=== PATIENT | male | born 1955 | race Caucasian/White ===

== ENCOUNTER 2018-03-04 13:33 | Emergency (ER) | payer MEDICARE, SELFPAY ==
[2018-03-04 13:35] VITALS: BP 75/48; PULSE 110; RESP 18; TEMP 36.6; O2SAT 98; BMI 20.5
[2018-03-04 13:55] VITALS: BP 109/87; PULSE 91; RESP 16; O2SAT 95
--- NOTE | 2018-03-04 14:06 | RAD_ITS ---
STUDY: X-RAY CHEST REASON FOR EXAM: Male, 62 years old. Frequent falls. Hypertension. TECHNIQUE: Single AP portable view of the chest. COMPARISON: None. FINDINGS: EKG electrodes are seen. Hyperinflation. Mild increased markings at the lung bases. This suggests some mild bibasilar scarring. There is no demonstrated pleural abnormality. Normal size heart. Normal mediastinum and brenda. Normal visualized pulmonary arteries. There is atherosclerotic calcification of the aortic arch with tortuosity. Normal visualized thoracic spine. Electrodes from a TENS unit are seen. They terminate at the T7-T8 level. Normal visualized ribs, clavicles, and shoulders. There is no demonstrated abnormality of the visualized soft tissue structures of the upper abdomen. RAD/Chest 1 View (Portable) IMPRESSION: Hyperinflation. Findings suggest some mild bibasilar linear scarring. No acute abnormality is seen. Electronically Signed: Rodney Rey MD at 14:31 EDT Tel [phone], Service support ,
--- NOTE | 2018-03-04 14:06 | CT_ITS ---
STUDY: CT BRAIN WITHOUT CONTRAST REASON FOR EXAM: Male, 62 years old. Confusion. Hypotension. RADIATION DOSAGE (If Supplied By Facility): CTDIvol = ( 44.99 ) mGy, DLP = ( 796.11 ) mGycm TECHNIQUE: Transaxial CT imaging of the brain was performed without administration of intravenous contrast material. Individualized dose optimization techniques were used for this CT. COMPARISON: None. FINDINGS: Normal soft tissue structures. Normal calvarium. There is mild cerebral atrophy with widening of the extra-axial spaces and ventricular dilatation. Normal white matter tracts of the cerebral hemispheres. Normal basal ganglia and thalami. Normal brainstem. Normal cerebellum. There is no intracranial hemorrhage. There are no findings of an acute ischemic infarction. Atherosclerotic calcification of the cavernous portions of the internal carotid arteries bilaterally. Partial opacification of the right maxillary sinus. CT/Brain/Head without Contrast IMPRESSION: Partial opacification of the right maxillary sinus. Electronically Signed: Rodney Rey MD at 14:59 EDT Tel [phone], Service support ,
--- NOTE | 2018-03-04 14:06 | EKG12_ITS ---
Test Reason : CP,DIZZY,BACK PAIN Blood Pressure : / mmHG Vent. Rate : 098 BPM Atrial Rate : 098 BPM P-R Int : 170 ms QRS Dur : 080 ms QT Int : 346 ms P-R-T Axes : 067 026 077 degrees QTc Int : 441 ms Normal sinus rhythm Anterior infarct , age undetermined Abnormal ECG Confirmed by MYRNA LINCOLN ([id number]), material expeditor CORNELIA MEHTA ([id number]) on 03/17/2018 5:58:12 PM Referred By: STACEY/RAMONE Confirmed By:MYRNA LINCOLN
[2018-03-04] MEDS: 0.9% Normal Saline 1,000 ML 1000 ML IV (14:24)
[2018-03-04] MEDS: 0.9% Normal Saline 1,000 ML 150 ML IV (14:24)
[2018-03-04 14:33] VITALS: BMI 20.5
[2018-03-04 14:34] LABS: Absolute Lymphocyte Count 1.49 X10^3/ul (0.83-4.51); Absolute Neutrophil Count 10.3 X10^3/uL (2.0-7.7); Basophil# 0.06 X10^3/uL; Basophil% 0.5 % (0-1); Eosinophil# 0.09 X10^3/uL; Eosinophils% 0.7 % (0-5); Hemoglobin 13.4 g/dl (13.0-16.5); Lymphocyte # 1.49 X10^3/ul (4.0); Lymphocyte % 11.6 % (19-41); Mean Corp Hgb Conc 34.4 g/gl (32-36); Mean Corpuscular Hgb 31.6 pg (27.0-32.0); Mean Platelet Vol. 8.6 fl (6.2-12.0); Neutrophil # 10.29 X10^3/uL (2.7-7.7); Neutrophil % 79.9 % (47-70); Platelet Count 294 K/mm3 (150-450); RBC Distribution Width CV 13.2 % (11.6-14.6); RBC Distribution Width SD 44.2 fl (35.1-43.9); Red Blood Count 4.24 M/mm3 (4.6-6.2); White Blood Count 12.9 K/mm3 (4.4-11.0)
[2018-03-04 14:35] LABS: POSITIVE COUNT NO; POSITIVE DIFFERENTIAL NO; POSITIVE MORPHOLOGY NO
[2018-03-04 14:59] LABS: AST(SGOT) 18 U/L (15-37); Alanine Aminotransfer ALT/SGPT 20 U/L (16-61); Alkaline Phosphatase 98 U/L (45-117); Anion Gap 11 (5-15); BUN 19 mg/dL (7-18); Calcium,Total 9.2 mg/dL (8.5-10.1); Chloride 100 mmol/L (98-107); Creatinine, Serum 1.46 mg/dL (0.70-1.30); EST Glomerular Filtration Rate 52 mL/min (>60); Est Glom Filt Rate - Afr Amer 63 mL/min (>60); Globulin 3.5 g/dL (2.2-4.2); Glucose 84 mg/dL (74-106); Potassium 4.3 mmol/L (3.5-5.1); Protein, Total 7.5 g/dL (6.4-8.2); Sodium Level 133 mmol/L (136-145)
--- NOTE | 2018-03-04 15:47 | ED.VISSUMM ---
- ER Visit Summary Date of Service: 03/04/18 Chief Complaint: Dizzy, low blood pressure History of Present Illness: The patient is a 62 M who had dizziness upon getting up out of bed this morning. He reports feeling very lightheaded and he crumpled to his knees. states that several times when he tried to get upright he would become very weak. His blood pressures at home are in the 80s over 50s. also states that he has had confusion for the past month or so. He repeats questions and then forgets he is asked her. There has been no recent head injury. He does have a pinched nerve in his neck. He also has a spinal stimulator. History is otherwise significant for coronary disease, hypertension, high cholesterol, reflux disease. He has 2 cardiac stents. Patient denies any recent medication adjustments or changes. Physical Examination: Blood pressure in triage is 75/48 temperature 97.8 heart rate 110 respiratory rate 18 pulse ox 98% on room air. The time of my examination his blood pressure is 109/87 and a heart rate of 91. Head and neck examination is unremarkable. Heart is regular rate and rhythm. Lung sounds are clear. Abdomen is soft and nontender. Neuro exam reveals no focal neuro deficits. Test Results: EKG is sinus at 98 with anterior Q waves. No acute ST changes noted. Chest x-ray shows hyperinflation with no acute abnormality. CT the head shows partial opacification of the right maxillary sinus. CBC was a white count 12.9. Chemistry studies reveal a sodium of 133, BUN 19, creatinine 1.46. In May 2017 creatinine was 0.81. Troponin is less than 0.015. Urinalysis significant only for hyaline casts. No sign of acute infection. Emergency Department Course and Treatment: Patient is given 2 L of IV fluid. He is tolerating p.o. here and feels hungry. Patient has been able to get up and ambulate to the restroom without difficulty. His systolic blood pressure has been in the 140s. Test results were discussed with patient and at bedside. He will be given a course of Augmentin to treat the sinus infection. She states that he still seems confused and is repeating questions. This is been ongoing for several weeks. They were encouraged to follow-up with primary care physician as further testing can be done about this. Treatment Plan: [] Disposition: Discharge Impression: 1. Hypotension secondary to dehydration, improved 2. Acute sinusitis This note was generated with [employer] dictation software. It may contain incorrect words, spelling, and punctuation that were not noted in review of the chart prior to signing ED Disposition - Plan for ED Patient: Chief Complaint: Dizziness Referrals: Juliano Chung III, MD [Primary Care Provider] -
[2018-03-04 16:28] VITALS: BP 149/109; PULSE 82; RESP 16; O2SAT 97
[2018-03-04 16:28] LABS: Mucous, Urine 0 SEEN /hpf (<or=2+); Red Blood Cells-Urine 0 SEEN /hpf (0-5)
[2018-03-04] MEDS: 0.9% Normal Saline 1,000 ML 999 ML IV (16:29)
[2018-03-04 16:35] LABS: Color, Urine Yellow (Yellow); Glucose, Dipstick Normal (Normal); Ketone-Dipstick Negative (Negative); Leukocyte Esterase-Dipstick Negative /ul (Negative); Nitrite-Dipstick Negative (Negative); Occult Blood-Urine Negative /ul (Negative); Protein-Dipstick Negative (Negative); Specific Gravity, Urine 1.015 (1.002-1.030); Urine Bilirubin Dipstick Negative (Negative); Urine Clarity Clear (Clear); Urine Urobilinogen Normal (Normal)
[2018-03-04 16:47] LABS: Bacteria RARE /hpf (None Seen); Hyaline Cast 5-10 SEEN /lpf (0-5); Squamous Epithelial Cells - UA 0-5 SEEN /hpf (0-5); White Blood Cells 0-5 SEEN /hpf (0-5)
--- NOTE | 2018-03-04 16:57 | ED.DEP ---
ED Disposition - Plan for ED Patient: Disposition: Home or Assisted Living Chief Complaint: Dizziness Instructions: ED Sinusitis Abx Tx, ED Dehydration Prescriptions: Amox/Clavulanate Tablet [Augmentin Tablet] 875 mg PO Q12H #20 tablet Referrals: Juliano Chung III, MD [Primary Care Provider] - As soon as possible
[2018-03-04 17:14] VITALS: BP 141/97; PULSE 81; RESP 16; O2SAT 98
[2018-03-04] MEDS: Amox/Clavulanate 875 MG Tablet PO (17:14)
== END 2018-03-04 17:19 | disposition home or self-care (01) ==
PROVIDERS: Emergency Provider Emergency Medicine; Family Provider Family Medicine; PCP Family Medicine
DX: I95.89 Other hypotension (principal); E86.0 Dehydration; J01.90 Acute sinusitis, unspecified; I25.10 Atherosclerotic heart disease of native coronary artery without angina pectoris; I10 Essential (primary) hypertension; E78.00 Pure hypercholesterolemia, unspecified; K21.9 Gastro-esophageal reflux disease without esophagitis; F32.9 Major depressive disorder, single episode, unspecified; F41.9 Anxiety disorder, unspecified; Z95.5 Presence of coronary angioplasty implant and graft; Z79.82 Long term (current) use of aspirin; Z79.01 Long term (current) use of anticoagulants; Z79.899 Other long term (current) drug therapy; Z72.0 Tobacco use
CPT/HCPCS: 70450; 71045; 80048; 80076; 81001; 84484; 85025; 93005; 99284; A4216

== ENCOUNTER → 2018-05-09 11:36 | Outpatient (CLI) | payer MEDICARE, SELFPAY ==
[2018-05-09 13:43] LABS: Amphetamine Urine VISTA NEGATIVE (<1000 ng/mL); Barbiturate Urine VISTA NEGATIVE (< 200 ng/mL); Benzodiazepine Urine VISTA NEGATIVE (< 200 ng/mL); Cocaine Urine VISTA NEGATIVE (< 300 ng/mL); Ecstacy Urine VISTA POSITIVE (< 500 ng/mL); Methadone Urine VISTA NEGATIVE (< 300 ng/mL); PCP Urine VISTA NEGATIVE (< 25 ng/mL); THC Urine VISTA NEGATIVE (< 50 ng/mL); Vista UDS pH Range 6
== END ==
PROVIDERS: Family Provider Family Medicine; PCP Family Medicine; Visit Provider Anesthesiology Pain Medicine
DX: F11.20 Opioid dependence, uncomplicated (principal)
CPT/HCPCS: 80307

== ENCOUNTER → 2019-09-08 10:24 | Outpatient (CLI) | payer MEDICARE, SELFPAY ==
[2019-09-08 11:31] LABS: Amphetamine Urine VISTA NEGATIVE (<1000 ng/mL); Barbiturate Urine VISTA NEGATIVE (< 200 ng/mL); Benzodiazepine Urine VISTA NEGATIVE (< 200 ng/mL); Cocaine Urine VISTA NEGATIVE (< 300 ng/mL); Ecstacy Urine VISTA POSITIVE (< 500 ng/mL); Methadone Urine VISTA NEGATIVE (< 300 ng/mL); PCP Urine VISTA NEGATIVE (< 25 ng/mL); THC Urine VISTA NEGATIVE (< 50 ng/mL); Vista UDS pH Range 5
== END ==
PROVIDERS: Family Provider Family Medicine; PCP Family Medicine; Referring Provider Anesthesiology Pain Medicine; Visit Provider Anesthesiology Pain Medicine
DX: F11.20 Opioid dependence, uncomplicated (principal)
CPT/HCPCS: 80307

== ENCOUNTER 2019-10-21 16:51 | Emergency (ER) | payer MEDICARE, SELFPAY ==
[2019-10-21 16:52] VITALS: BP 142/88; PULSE 87; RESP 17; TEMP 36.4; O2SAT 95; BMI 20.1
[2019-10-21 17:01] VITALS: BP 149/100; PULSE 89; RESP 20; O2SAT 99
[2019-10-21 17:10] VITALS: O2SAT 98
--- NOTE | 2019-10-21 17:34 | EKG12_ITS ---
Test Reason : CP Blood Pressure : / mmHG Vent. Rate : 079 BPM Atrial Rate : 079 BPM P-R Int : 148 ms QRS Dur : 080 ms QT Int : 366 ms P-R-T Axes : 061 035 077 degrees QTc Int : 419 ms Normal sinus rhythm Normal ECG Confirmed by VALENTINA FLORES, RITO ([id number]), editorial cartoonist SHELBIE SHAW ([id number]) on 10/23/2019 10:07:39 AM Referred By: Juliano Chung Confirmed By:ROEL MONTGOMERY MD
[2019-10-21] MEDS: Naproxen 250 MG Tablet 500 MG PO (18:11)
[2019-10-21 18:12] LABS: Absolute Lymphocyte Count 2.35 X10^3/uL (0.83-4.51); Absolute Neutrophil Count 10.3 X10^3/uL (2.0-7.7); Basophil# 0.06 X10^3/uL; Basophil% 0.4 % (0-1); Eosinophil# 0.14 X10^3/uL; Hematocrit 32.3 % (40-54); Hemoglobin 10.9 g/dL (13.0-16.5); Lymphocyte # 2.35 X10^3/ul (4.0); Lymphocyte % 16.7 % (19-41); Mean Corp Hgb Conc 33.7 g/dL (32-36); Mean Corpuscular Hgb 31.8 pg (27.0-32.0); Mean Corpuscular Volume 94.2 fL (80-94); Mean Platelet Vol. 9.2 fl (6.2-12.0); Monocyte# 1.12 X10^3/uL; Monocyte% 7.9 % (0-10); NRBC Flagged by Analyzer 0 % (0-5); Neutrophil # 10.33 X10^3/uL (2.7-7.7); Neutrophil % 73.3 % (47-70); Platelet Count 372 K/mm3 (150-450); RBC Distribution Width SD 44.9 fl (35.1-43.9); Red Blood Count 3.43 M/mm3 (4.6-6.2); White Blood Count 14.1 K/mm3 (4.4-11.0)
--- NOTE | 2019-10-21 18:16 | RAD_ITS ---
STUDY: X-RAY CHEST REASON FOR EXAM: Male, 63 years old. Shortness of breath TECHNIQUE: Frontal and lateral views COMPARISON: March 04, 2018 FINDINGS: The lungs are expanded. No pulmonary pathology. Normal size heart. Normal mediastinum and brenda. Normal visualized pulmonary arteries. Calcified visualized aortic arch and descending thoracic aorta. Stimulator electrodes at the mid thoracic spine. Normal visualized ribs, clavicles, and shoulders. There is no demonstrated abnormality of the visualized soft tissue structures of the upper abdomen. RAD/Chest PA and Lateral IMPRESSION: No acute pulmonary pathology. Electronically Signed: Matti Freire DO at 18:44 EST Tel [phone], Service support ,
[2019-10-21 18:40] LABS: AST(SGOT) 15 U/L (15-37); Alanine Aminotransfer ALT/SGPT 20 U/L (16-61); Albumin, Serum 3.5 g/dL (3.2-5.0); Alkaline Phosphatase 82 U/L (45-117); Anion Gap 7 (5-15); BUN 11 mg/dL (7-18); BUN/Creat Ratio 12.1 RATIO (10-20); Calcium,Total 9.2 mg/dL (8.5-10.1); Chloride 104 mmol/L (98-107); Creatinine, Serum 0.91 mg/dL (0.70-1.30); EST Glomerular Filtration Rate 89 mL/min (>60); Est Glom Filt Rate - Afr Amer 108 mL/min (>60); Estimated Creatinine Clearance 65.77 ml/min; Globulin 3.4 g/dL (2.2-4.2); Glucose 60 mg/dL (74-106); Potassium 3.3 mmol/L (3.5-5.1); Protein, Total 6.9 g/dL (6.4-8.2); Sodium Level 136 mmol/L (136-145)
[2019-10-21 18:49] LABS: BNP,B-Type NATRIURETIC PEPTIDE 193.3 pg/mL (0-100)
[2019-10-21 20:40] VITALS: BP 131/74; PULSE 74; RESP 14; O2SAT 94
--- NOTE | 2019-10-21 21:05 | ED.DCSUM_ITS ---
- ER Visit Summary Date of Service: 10/21/19 Chief Complaint: Shortness of breath History of Present Illness: The patient is a 63 M who presents with shortness of breath that began today. Patient states his breathing is heavy. Patient states nothing makes his breathing better or worse. Patient admits to a cough but denies any sputum production. Patient also states he has a history of congestive heart failure and cirrhosis. Patient denies any orthopnea. Patient denies any fevers or chills. Physical Examination: Vital signs are stable. Patient is afebrile. Patient is in no acute distress. Oral mucosa is pink and moist. Neck is supple. Trachea is midline. There is no JVD noted. Heart was regular rate and rhythm. Lungs are clear and equal bilaterally. Abdomen is soft. Bowel sounds are normal. There is no tenderness. There is no rebound or guarding noted. Skin is warm dry. Cranial nerves II through XII are intact. There are no focal motor or sensory deficits noted. Extremities are intact. There is no calf tenderness or edema. Test Results: CBC shows a mild leukocytosis of 14.1. Hemoglobin was 10.9 hematocrit was 32.3. Comprehensive metabolic profile was essentially within normal limits. Troponin was normal. BNP was 193.7. EKG showed normal sinus rhythm with a rate of 79. There are no acute ST or T wave changes. This was unchanged compared to previous EKG dated 03/04/2018. PA and lateral chest x-ray was obtained. There is no acute cardiopulmonary process. This was interpreted by the radiologist and myself. Emergency Department Course and Treatment: Patient was given a dose of Naprosyn here. Patient was sleeping on reevaluation. Patient was instructed to follow- up with his primary care physician in 5 to 7 days. Patient understood and was agreeable with the plan. All questions were answered. Disposition: Discharge home Impression: Dyspnea This note was generated with [employer] dictation software. It may contain incorrect words, spelling, and punctuation that were not noted in review of the chart prior to signing ED Disposition - Plan for ED Patient: Disposition: Home or Assisted Living Diagnosis: Dyspnea Instructions: ED Dyspnea Referrals: Juliano Chung III, MD [Primary Care Provider] - 3-5 Days
[2019-10-21 21:21] VITALS: BP 147/71; PULSE 78; RESP 17; O2SAT 96
--- NOTE | 2019-10-21 21:46 | CM.ED ---
Social Work Consult: Resource Informant: Grecia iFelds, RN Attempted to meet with patient, patient already left. Looked in waiting room, patient no longer in the ER from what this social work administrator can tell. Updated nursing staff. Nursing staff stating that patient did appear to be in a hurry. Referral for housing resources. Patient stating to be sleeping in truck per nursing staff. Sariah DIAS, RYLEE
== END 2019-10-21 21:24 | disposition home or self-care (01) ==
PROVIDERS: Emergency Provider Emergency Medicine; PCP Family Medicine; Referring Provider Family Medicine
DX: R06.00 Dyspnea, unspecified (principal); R05 Cough; M54.9 Dorsalgia, unspecified; M54.2 Cervicalgia; G89.29 Other chronic pain; R51 Headache; I50.9 Heart failure, unspecified; K74.60 Unspecified cirrhosis of liver; Z95.5 Presence of coronary angioplasty implant and graft; Z79.82 Long term (current) use of aspirin; Z79.02 Long term (current) use of antithrombotics/antiplatelets; Z79.899 Other long term (current) drug therapy; F17.200 Nicotine dependence, unspecified, uncomplicated
CPT/HCPCS: 71046; 80053; 83880; 84484; 85025; 93005; 99284; A4216

== ENCOUNTER → 2020-01-01 10:43 | Outpatient (CLI) | payer MEDICARE, SELFPAY ==
--- NOTE | 2020-01-01 10:50 | RAD_ITS ---
STUDY: X-RAY - LUMBAR SPINE REASON FOR EXAM: Male, 64 years old. RECENT FALL, PAIN TECHNIQUE: 3 view(s) of the lumbar spine were obtained. COMPARISON: None FINDINGS: There is straightening of the normal lumbar lordosis. There is no substantial scoliosis. There is a normal alignment of the vertebrae. There is multilevel endplate spondylosis of the lumbar vertebrae. There is multi-level degenerative disc disease with multi-level disc space narrowing. There is atherosclerotic calcification of the abdominal aorta without a demonstrated aneurysm. The spinal cord stimulation device is seen. RAD/Lumbar Spine 2 or 3 Views IMPRESSION: Degenerative changes of the spine, as detailed above. Straightening of the normal lumbar lordosis. Electronically Signed: Rodney Rey, at 14:22 EDT , Service support ,
--- NOTE | 2020-01-01 10:50 | RAD_ITS ---
STUDY: X-RAY - PELVIS REASON FOR EXAM: Male, 64 years old. RECENT FALL, PAIN TECHNIQUE: One view of the pelvis was obtained. COMPARISON: None. FINDINGS: There is a non-specific bowel gas pattern. There are multiple calcified phleboliths. A pain stimulator device is seen with the battery pack overlying the right hip joint. Normal bilateral iliac wings, sacroiliac joints and visualized sacrum. Normal visualized bilateral superior and inferior pubic rami. There are degenerative changes of the pubic symphysis with articular narrowing and sclerosis. Normal ischial tuberosities. Normal visualized right femoral head. Normal right acetabulum. Normal right hip joint. Normal visualized left femoral head. Normal left acetabulum. Normal left hip joint. RAD/Pelvis 1 or 2 Views IMPRESSION: No acute abnormality is seen. Electronically Signed: Rodney Rey, at 14:24 EDT , Service support ,
== END ==
LOC: RAD 10:48
PROVIDERS: PCP Family Medicine; Referring Provider Anesthesiology Pain Medicine; Visit Provider Anesthesiology Pain Medicine
DX: M54.5 Low back pain (principal)
CPT/HCPCS: 72100; 72170

== ENCOUNTER 2022-10-24 18:35 | Emergency (ER) | payer MEDICARE, SELFPAY ==
[2022-10-24 18:37] VITALS: BP 127/87; PULSE 74; RESP 16; TEMP 35.9; O2SAT 98; BMI 20.1
--- NOTE | 2022-10-24 19:15 | EKG12_ITS ---
Test Reason : CP Blood Pressure : / mmHG Vent. Rate : 063 BPM Atrial Rate : 063 BPM P-R Int : 188 ms QRS Dur : 086 ms QT Int : 404 ms P-R-T Axes : 082 040 087 degrees QTc Int : 413 ms Normal sinus rhythm Normal ECG Confirmed by VALENTINA FLORES, RITO ([id number]), make up editor ALLEN REID ([id number]) on 10/25/2022 1:40:21 PM Referred By: FRANCESCO Confirmed By:ROEL MONTGOMERY MD
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
--- NOTE | 2022-10-24 19:30 | RAD_ITS ---
STUDY: X-RAY CHEST REASON FOR EXAM: Male, 66 years old. cp TECHNIQUE: XR Chest 1 View COMPARISON: 10.21.19 FINDINGS: There is atherosclerotic calcification of the aortic arch with tortuosity. There are diffuse degenerative changes of the visualized thoracic spine. There is degenerative osteoarthritis of the bilateral shoulders. There is no demonstrated pleural abnormality. Metallic leads in the spinal canal may suggest spinal stimulator leads. Normal size heart. Normal mediastinum and brenda. Normal visualized pulmonary arteries. There is no demonstrated abnormality of the visualized soft tissue structures of the upper abdomen. RAD/Chest 1 View (Portable) IMPRESSION: There are no acute findings. Electronically Signed: Matt Sutton MD at 19:58 EST ,
[2022-10-24 19:43] LABS: Absolute Neutrophil Count 6.1 X10^3/uL (2.0-7.7); Basophil# 0.09 X10^3/uL; Basophil% 0.9 % (0-1); Eosinophil# 0.41 X10^3/uL; Eosinophils% 3.9 % (0-5); Hematocrit 36.7 % (40-54); Hemoglobin 12.6 g/dL (13.0-16.5); Lymphocyte % 29.5 % (19-41); Mean Corp Hgb Conc 34.3 g/dL (32-36); Mean Corpuscular Hgb 32.4 pg (27.0-32.0); Mean Corpuscular Volume 94.3 fL (80-94); Mean Platelet Vol. 8.9 fl (6.2-12.0); Monocyte# 0.74 X10^3/uL; NRBC Flagged by Analyzer 0 % (0-5); Neutrophil # 6.12 X10^3/uL (2.7-7.7); Neutrophil % 58.3 % (47-70); Platelet Count 317 K/mm3 (150-450); RBC Distribution Width CV 12.1 % (11.6-14.6); RBC Distribution Width SD 42.1 fl (35.1-43.9); Red Blood Count 3.89 M/mm3 (4.6-6.2); White Blood Count 10.5 K/mm3 (4.4-11.0)
[2022-10-24 20:12] LABS: Anion Gap 7 (5-15); BUN 11 mg/dL (7-18); BUN/Creat Ratio 11.1 RATIO (10-20); Calcium,Total 9.1 mg/dL (8.5-10.1); Chloride 102 mmol/L (98-107); Creatinine, Serum 0.99 mg/dL (0.70-1.30); EST Glomerular Filtration Rate 80 mL/min (>60); Est Glom Filt Rate - Afr Amer 97 mL/min (>60); Estimated Creatinine Clearance 58.07 ml/min; Glucose 82 mg/dL (74-106); Sodium Level 135 mmol/L (136-145); Troponin-I HS 7 pg/mL (3.0-78.0)
[2022-10-24 21:54] VITALS: BP 121/71; PULSE 73; RESP 14; O2SAT 96
== END 2022-10-24 21:55 | disposition home or self-care (01) ==
PROVIDERS: Emergency Provider Emergency Medicine; PCP Family Medicine; Visit Provider Emergency Medicine
DX: F41.9 Anxiety disorder, unspecified (principal); R07.9 Chest pain, unspecified; F17.210 Nicotine dependence, cigarettes, uncomplicated; I25.10 Atherosclerotic heart disease of native coronary artery without angina pectoris
CPT/HCPCS: 71045; 80048; 84484; 85025; 93005; 99285

== ENCOUNTER 2024-10-05 15:54 | Emergency (ER) | payer MEDICARE, SELFPAY ==
[2024-10-05 15:55] VITALS: PULSE 50; RESP 18; TEMP 36.5; O2SAT 96; BMI 19.9
--- NOTE | 2024-10-05 16:20 | RAD_ITS ---
STUDY: X-RAY - LEFT HUMERUS REASON FOR EXAM: Male, 68 years old. fall,pain, deformity TECHNIQUE: 2 view(s) of the humerus. COMPARISON: None. FINDINGS: There is an acute spiral fracture of the proximal to midshaft of the humerus with overlapping and mild medial angulation of fracture fragments. There is no demonstrated fracture or osseous destructive process. There is diffuse soft tissue swelling of the arm RAD/Humerus min 2 Views IMPRESSION: Acute displaced angulated fracture of the proximal to mid humeral shaft Electronically Signed: Harjeet Solano MD at 16:37 EST ,
[2024-10-05 16:54] VITALS: BP 132/79; PULSE 64; RESP 18; O2SAT 95
--- NOTE | 2024-10-05 17:09 | CT_ITS ---
STUDY: CT BRAIN WITHOUT CONTRAST REASON FOR EXAM: Male, 68 years old. Trauma RADIATION DOSAGE (If Supplied By Facility): CTDIvol = ( 44.99 ) mGy, DLP = ( 829.85 ) mGycm TECHNIQUE: Transaxial CT imaging of the brain was performed without administration of intravenous contrast material. Individualized dose optimization techniques were used for this CT. COMPARISON: March 04, 2018. FINDINGS: Normal soft tissue structures. Normal calvarium. Calcific plaquing of the cavernous carotids Mild atrophy and periventricular white matter ischemic changes.. Normal basal ganglia and thalami. Normal brainstem. Normal cerebellum. There is no intracranial hemorrhage. There are no findings of an acute ischemic infarction. Moderate mucosal thickening of the right maxillary sinus CT/Brain/Head without Contrast IMPRESSION: [Atrophy and periventricular white matter ischemic change. No acute intracranial bleed Electronically Signed: Harjeet Solano MD at 18:26 EST ,
--- NOTE | 2024-10-05 17:09 | CT_ITS ---
STUDY: CT CERVICAL SPINE WITHOUT CONTRAST REASON FOR EXAM: Male, 68 years old. Trauma RADIATION DOSAGE (If Supplied By Facility): CTDIvol = ( 24.84 ) mGy, DLP = ( 500.84 ) mGycm TECHNIQUE: High resolution transaxial imaging was performed without contrast material. Sagittal and coronal images were reconstructed. Individualized dose optimization techniques were used for this CT. COMPARISON: None FINDINGS: Normal craniovertebral junction. Normal anterior atlantoaxial articulation. Normal odontoid process. Normal cervical lordosis. Normal vertebral bodies and posterior osseous elements. C2-3: Normal endplates. Normal disc height and morphology. Normal central canal and intervertebral neuroforamina. C3-4: Normal endplates. Normal disc height and morphology. Normal central canal. Severe right neural foraminal stenosis secondary to bony hypertrophy C4-5: Normal endplates. Normal disc height and morphology. Normal central canal. Moderate right neural foraminal stenosis and mild narrowing on the left secondary to bony hypertrophy C5-6: Narrowed disc space and endplate spurring.. Normal central canal. Severe bilateral neural foraminal stenosis secondary to bony hypertrophy C6-7: Narrowed disc space and endplate spurring. Normal central canal. Severe bilateral neural foraminal stenosis secondary to bony hypertrophy. C7-T1: Grade 1 spondylolisthesis Normal endplates. Normal disc height and minimal bulging disc osteophyte complex Normal central canal and intervertebral neuroforamina. Normal visualized soft tissue structures. CT/Spine Cervical without Contras IMPRESSION: Moderate spondylosis most severe at C5-6 and C6-7. No acute fracture or other significant abnormality. Electronically Signed: Harjeet Solano MD at 18:28 EST Reading Location ID and State: [id number] [place] [address] Tel , Service support ,
[2024-10-05] MEDS: Morphine 4 MG/ML Syringe IV (17:17)
[2024-10-05] MEDS: Ondansetron 4 MG/2 ML Vial IV (17:17)
[2024-10-05] MEDS: 0.9% Normal Saline (1000mL) 1,000 ML 999 ML IV (17:17)
[2024-10-05 17:21] LABS: Absolute Lymphocyte Count 3.08 X10^3/uL (0.83-4.51); Absolute Neutrophil Count 6.3 X10^3/uL (2.0-7.7); Basophil# 0.11 X10^3/uL; Eosinophil# 0.17 X10^3/uL; Eosinophils% 1.6 % (0-5); Hematocrit 40.5 % (40-54); Hemoglobin 13.3 g/dL (13.0-16.5); Lymphocyte # 3.08 X10^3/ul (0.83-4.51); Lymphocyte % 29.3 % (19-41); Mean Corp Hgb Conc 32.8 g/dL (32-36); Mean Corpuscular Hgb 32.5 pg (27.0-32.0); Mean Platelet Vol. 9.8 fl (6.2-12.0); Monocyte% 7.6 % (0-10); NRBC Flagged by Analyzer 0 % (0-5); Neutrophil % 60.1 % (47-70); Platelet Count 312 K/mm3 (150-450); RBC Distribution Width CV 12.1 % (11.6-14.6); Red Blood Count 4.09 M/mm3 (4.6-6.2); White Blood Count 10.5 K/mm3 (4.4-11.0)
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
[2024-10-05 17:36] LABS: Anion Gap 11 (5-15); BUN 15 mg/dL (7-18); BUN/Creat Ratio 12.4 RATIO (10-20); Calcium,Total 8.8 mg/dL (8.5-10.1); Chloride 101 mmol/L (98-107); Creatinine, Serum 1.21 mg/dL (0.70-1.30); EST Glomerular Filtration Rate 63 mL/min (>60); Est Glom Filt Rate - Afr Amer 76 mL/min (>60); Estimated Creatinine Clearance 45.65 ml/min; Glucose 91 mg/dL (74-106); Sodium Level 135 mmol/L (136-145)
[2024-10-05] MEDS: Diphth,Pertuss(Acell),Tet Vac 0.5 ML Vial IM (17:56)
[2024-10-05 18:00] VITALS: BP 151/83; PULSE 75; RESP 18; O2SAT 95
[2024-10-05 19:00] VITALS: BP 151/94; PULSE 84; RESP 18; O2SAT 94
[2024-10-05] MEDS: HYDROmorphone 1 MG/ML Syringe IV (19:25)
[2024-10-05 20:00] VITALS: BP 134/80; PULSE 85; RESP 20; O2SAT 92
[2024-10-05] MEDS: fentaNYL 100 MCG/2 ML Ampul 50 MCG IV (20:00)
[2024-10-05 20:51] VITALS: BP 134/80; PULSE 85; RESP 18; TEMP 36.8; O2SAT 92
[2024-10-05] MEDS: oxyCODONE 5 MG Tablet PO (22:29)
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
== END 2024-10-05 22:31 | disposition home or self-care (01) ==
PROVIDERS: Emergency Provider Surgery; PCP Family Medicine; Visit Provider Surgery
DX: S42.352A Displaced comminuted fracture of shaft of humerus, left arm, initial encounter for closed fracture (principal); F10.129 Alcohol abuse with intoxication, unspecified; I25.10 Atherosclerotic heart disease of native coronary artery without angina pectoris; F17.210 Nicotine dependence, cigarettes, uncomplicated; W19.XXXA Unspecified fall, initial encounter
CPT/HCPCS: 70450; 72125; 73060; 80048; 82077; 85025; 90715; 96361; 96374; 96375; 96376; 99285; A4216; J2405

== ENCOUNTER 2024-10-13 10:35 | Day surgery (SDC) | payer MEDICARE, SELFPAY ==
--- NOTE | 2024-10-12 12:30 | PAT.ANE_ITS ---
Pre-Assessment Diagnosis/Proposed Procedure Planned Operative Procedure(s): LEFT ORIF HUMERUS Anesthesia History Anesthesia History - front counter clerk: Anesthesia History - front counter clerk Hx Hospitalization No 10/09/24 09:23 Any Problems With Anesthesia No 10/09/24 09:23 Cholinesterase deficiency No 10/09/24 09:23 You/Your Family Experience No 10/09/24 09:23 fever (hyperthermia) with Relationship Recent Exposure to Contagious No 10/06/24 15:28 Disease Does patient have nerve No 10/09/24 09:23 stimulator Patient instructed to have device shut off --Does patient have Pacemaker or ICD? When Was Last Pacemaker Check QUESTION #4 FULL TEXT: You/Your Family Experience fever (hyperthermia) with Anesthesia Last Oral Intake Last Oral intake: Last Oral Intake NPO since Meds taken in AM with sips of water? Meds patient instructed to take am of surgery PONV PONV - front counter clerk: PONV - front counter clerk Female No 10/09/24 09:23 HX of Motion Sickness No 10/09/24 09:23 HX of N/V After Surgery No 10/09/24 09:23 Non-Smoker No 10/09/24 09:23 Duration of Surgery greater Yes 10/09/24 09:23 than 60 minutes Number of Risk Factors 1 10/09/24 09:23 PONV Score Low Risk 10/09/24 09:23 Height & Weight Height & Weight: Anesthesia: Height & Weight Height 5 ft 6 in 10/08/24 14:24 Respiratory Assessment Respiratory Assessment - front counter clerk: Respiratory Tract Infection Hx - front counter clerk Hx Respiratory Tract Infection No 10/09/24 09:23 STOP Sleep Apnea STOP Sleep Apnea - front counter clerk: STOP Sleep Apnea - front counter clerk Hx Hypertension Yes: CONTROLLED ON MEDS 10/09/24 09:23 Hx Sleep Apnea No 10/09/24 09:23 CPAP BIPAP Do you snore loudly (louder No 10/09/24 09:23 than talking or can be heard Do you often feel tired/ No 10/09/24 09:23 fatigued/ sleepy during daytime? Has anyone observed you stop No 10/09/24 09:23 breathing during sleep? STOP Results Negative 10/09/24 09:23 QUESTION #5 FULL TEXT : Do you snore loudly (louder than talking or can be heard through closed doors)? Tobacco Use History Tobacco Use History - front counter clerk: Tobacco Use History - front counter clerk Tobacco Use Smoking Status Current every day smoker 10/09/24 09:23 Hx Tobacco Use Yes 10/09/24 09:23 Years Smoking Packs Smoked per Day Smoking Cessation Date was within the last 15 years Hx Smoking Cessation Date Hx Smoking Cessation Counseling Hematologic Medial History Hematologic Hx - front counter clerk: Hematologic Medical Hx - flash designer Hx of Blood Transfusion No 10/09/24 09:23 Hx of Transfusion in last 3 No 10/09/24 09:23 Months Date of Last Transfusion (if within last 3 months) Ever experience any problems No 10/09/24 09:23 with transfusion(s)? Specify any problems Hx of Preganancy in last 3 No 10/09/24 09:23 Months Nurse Filling Out Transfusion VCHRISTIN 10/09/24 09:23 & Questions: Date: 10/09/24 10/09/24 09:23 Time: 09:35 10/09/24 09:23 Patient unable to answer at this time (ie. confused, unrespo /Reproduction History /Reproductive History - front counter clerk: /Reproductive Hx- front counter clerk Hx Now Gestational Age (in weeks): EDC: Hx Hx Para Hx Section SAB PFSH Medical History (Updated 10/09/24 @ 09:34 by Shahrzad Alfonso) Wears dentures Wears glasses Alcohol use Arthritis Excessive bleeding Back pain Blackout History of hiatal hernia History of ulceration Gastric reflux Smoker COPD (chronic obstructive pulmonary disease) Emphysema, unspecified Shortness of breath on exertion History of pain when walking History of echocardiogram History of stress test Cardiology follow-up encounter History of CHF (congestive heart failure) Left humeral fracture Hypertension Congestive heart failure (CHF) Coronary artery disease Chest pain Home Medications ?Medication ?Instructions ?Recorded ?Last Taken ?Type gabapentin 300 mg capsule 300 mg PO TIDCM PRN Pain 03/12/16 03/03/18 History aspirin 81 mg chewable tablet 81 mg PO DAILY@0800 health 05/15/17 03/03/18 History maintenance clopidogrel 75 mg tablet 75 mg PO DAILY blood thinner 05/15/17 03/03/18 History atorvastatin 40 mg tablet 40 mg PO QHS cholesterol 03/04/18 03/03/18 History pantoprazole 40 mg tablet,delayed 40 mg PO DAILY gerd/acid reflux 03/04/18 03/03/18 History release lisinopril 10 mg tablet 10 mg PO DAILY 10/21/19 Unknown History citalopram 20 mg tablet 20 mg PO QDAY 10/08/24 Unknown History meloxicam 15 mg tablet 15 mg PO DAILY 10/08/24 Unknown History trazodone 100 mg tablet 200 mg PO QHS PRN sleep 10/08/24 Unknown History buspirone 5 mg tablet 5 mg PO TID 10/09/24 Unknown History metoprolol succinate 25 mg 25 mg PO QHS 10/09/24 Unknown History tablet,extended release 24 hr Allergy/AdvReac Type Severity Reaction Status Date / Time No Known Allergies Allergy Verified 10/09/24 09:12 Surgical History (Updated 10/09/24 @ 09:34 by Shahrzad Alfonso) History of coronary artery stent placement History of cardiac catheterization Hx of tonsillectomy History of back surgery History of mandibular surgery Hx of knee surgery Social History Smoking Status: Current every day smoker tobacco type: cigarettes Audit: Pertinent Findings Pertinent Findings EKG Perinent findings: 10/26/2022 normal sinus rhythm 67 bpm normal EKG Heart catheterization pertinent findings: 10/12/2019 EF 60% LAD prior intervention stent in proximal LAD patent Additional pertinent findings: Potassium 3.0 10/05/2024 lab office aware Recommendation Anesthesia Recommendation Anesthesia recommendation: OPTIMIZED for anesthesia
[2024-10-13] VITALS (11 sets, daily range): BP systolic 130–158; BP diastolic 73–98; PULSE 62–79; RESP 16; TEMP 35.8–37.1; O2SAT 90–100
[2024-10-13] MEDS: 0.9% Normal Saline (1000mL) 1,000 ML 15 ML IV (11:43)
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
--- NOTE | 2024-10-13 11:59 | PRE.ANES_ITS ---
ASA Classification* ASA Classification ASA Classification: 3 Assessment & Plan Anesthesia* Anesthesia Assessment Anesthesia Assessment: Discussed sedation and/or anesthesia options, risks, benefits, and alternatives with patient/parents/legal guardian/POA. Questions invited. The patient/parents/legal guardian/POA seems to understand and agrees to proceed with anesthesia plan. Reviewed the physical assessment, medical history, allergy history and patient home medications list prior to surgery/procedure/anesthetic and documented any changes. Performed airway and anesthesia risk assessments. Anesthesia Type Anesthesia Type: General History Source History Obtained from:: Patient and Chart Anesthesia Focused Assessment* Temperature: 98.7 F Pulse Rate: 67 Blood Pressure: 152/89 Respiratory Rate: 16 Pulse Ox: 100 Oxygen Delivery Method: Room Air Airway Assessment Mouth opens: >3 cm Mallampati Score: II Teeth Condition: Dentures (Patient has full upper and lower dentures. They are out.) Neck Range of motion (ROM): Full ROM Focused Labs Anesthesia Preop lab: CBC WBC 10.5 K/mm3 (4.4-11.0) 10/05/24 15:40 RBC 4.09 M/mm3 (4.6-6.2) L 10/05/24 15:40 Hgb 13.3 g/dL (13.0-16.5) 10/05/24 15:40 Hct 40.5 % (40-54) 10/05/24 15:40 Plt Count 312 K/mm3 (150-450) 10/05/24 15:40 CHEMISTRY Potassium 3.0 mmol/L (3.5-5.1) L 10/05/24 15:40 Sodium 135 mmol/L (136-145) L 10/05/24 15:40 BUN 15 mg/dL (7-18) 10/05/24 15:40 Creatinine 1.21 mg/dL (0.70-1.30) 10/05/24 15:40 Glucose 91 mg/dL (74-106) 10/05/24 15:40 COAG PT 13.4 SECONDS (11.7-14.9) 05/16/17 05:00 Pre-Assessment Diagnosis/Proposed Procedure Planned Operative Procedure(s): LEFT ORIF HUMERUS Anesthesia History 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 When Was Last Pacemaker Check QUESTION #4 FULL TEXT: You/Your Family Experience fever (hyperthermia) with Anesthesia Last Oral Intake Last Oral intake: Last Oral Intake NPO since 20:00 10/13/24 11:24 Meds taken in AM with sips of water? Meds patient instructed to take am of surgery PONV PONV - telecommunications technician: PONV - telecommunications technician Female No 10/09/24 09:23 HX of Motion Sickness No 10/09/24 09:23 HX of N/V After Surgery No 10/09/24 09:23 Non-Smoker No 10/09/24 09:23 Duration of Surgery greater Yes 10/09/24 09:23 than 60 minutes Number of Risk Factors 1 10/09/24 09:23 PONV Score Low Risk 10/09/24 09:23 Height & Weight Height & Weight: Anesthesia: Height & Weight Height 5 ft 5 in 10/13/24 11:24 Weight: 54.8 kg 10/13/24 11:24 Body Mass Index (BMI) 20.0 10/13/24 11:24 Respiratory Assessment Respiratory Assessment - telecommunications technician: Respiratory Tract Infection Hx - telecommunications technician Hx Respiratory Tract Infection No 10/09/24 09:23 STOP Sleep Apnea STOP Sleep Apnea - telecommunications technician: STOP Sleep Apnea - telecommunications technician Hx Hypertension Yes: CONTROLLED ON MEDS 10/09/24 09:23 Hx Sleep Apnea No 10/09/24 09:23 CPAP BIPAP Do you snore loudly (louder No 10/09/24 09:23 than talking or can be heard Do you often feel tired/ No 10/09/24 09:23 fatigued/ sleepy during daytime? Has anyone observed you stop No 10/09/24 09:23 breathing during sleep? STOP Results Negative 10/09/24 09:23 QUESTION #5 FULL TEXT : Do you snore loudly (louder than talking or can be heard through closed doors)? 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 Specify any problems Hx of Preganancy in last 3 No 10/09/24 09:23 Months Nurse Filling Out Transfusion VCHRISTIN 10/09/24 09:23 & Questions: Date: 10/09/24 10/09/24 09:23 Time: 09:35 10/09/24 09:23 Patient unable to answer at this time (ie. confused, unrespo /Reproduction History /Reproductive History - telecommunications technician: /Reproductive Hx- telecommunications technician Hx Now Gestational Age (in weeks): EDC: Hx Hx Para Hx Section SAB Active Medications Active Medications: Current Medications Generic Name Dose Route Start Last Admin Trade Name Freq PRN Reason Stop Dose Admin Sodium Chloride 1,000 mls @ 15 mls/hr 10/13/24 10:45 10/13/24 11:43 IV 10/19/24 00:04 15 mls/hr .Q48H DARIN Administration Protocol [facility] Medical History Wears dentures Wears glasses Alcohol use Arthritis Excessive bleeding Back pain Blackout History of hiatal hernia History of ulceration Gastric reflux Smoker COPD (chronic obstructive pulmonary disease) Emphysema, unspecified Shortness of breath on exertion History of pain when walking History of echocardiogram History of stress test Cardiology follow-up encounter History of CHF (congestive heart failure) Left humeral fracture Hypertension Congestive heart failure (CHF) Coronary artery disease Chest pain Home Medications ?Medication ?Instructions ?Recorded ?Last Taken ?Type gabapentin 300 mg capsule 300 mg PO TIDCM PRN Pain 03/12/16 10/12/24 History aspirin 81 mg chewable tablet 81 mg PO DAILY@0800 health 05/15/17 10/10/24 History maintenance clopidogrel 75 mg tablet 75 mg PO DAILY blood thinner 05/15/17 10/10/24 History atorvastatin 40 mg tablet 40 mg PO QHS cholesterol 03/04/18 10/12/24 History pantoprazole 40 mg tablet,delayed 40 mg PO DAILY gerd/acid reflux 03/04/18 10/12/24 History release lisinopril 10 mg tablet 10 mg PO DAILY 10/21/19 10/12/24 History citalopram 20 mg tablet 20 mg PO QDAY 10/08/24 10/12/24 History meloxicam 15 mg tablet 15 mg PO DAILY 10/08/24 10/12/24 History trazodone 100 mg tablet 200 mg PO QHS PRN sleep 10/08/24 Unknown History buspirone 5 mg tablet 5 mg PO TID 10/09/24 10/12/24 History metoprolol succinate 25 mg 25 mg PO QHS 10/09/24 10/12/24 History tablet,extended release 24 hr Allergy/AdvReac Type Severity Reaction Status Date / Time No Known Allergies Allergy Verified 10/13/24 11:15 Surgical History History of coronary artery stent placement History of cardiac catheterization Hx of tonsillectomy History of back surgery History of mandibular surgery Hx of knee surgery Social History Smoking Status: Current every day smoker tobacco type: cigarettes Review of Systems (Anesthesia) ROS Narrative System reviewed and no additional complaints, except as documented.
--- NOTE | 2024-10-13 12:00 | RAD_ITS ---
STUDY: X-RAY - LEFT HUMERUS REASON FOR EXAM: Male, 68 years old. FX TECHNIQUE: 12 intraoperative spot films of the left humerus. COMPARISON: Left humerus radiographs dated 10/05/2024. FINDINGS: Sequential intraoperative spot films of the left humerus were obtained during ORIF hardware placement into the humerus, including intramedullary lynne placement with 4 proximal fixation screws and 2 distal interlocking screws. RAD/Humerus min 2 Views IMPRESSION: Intraoperative spot films taken during ORIF hardware placement into the left humerus. Electronically Signed: Duong Ewing MD at 14:38 EST ,
[2024-10-13] MEDS: Cefazolin 2 GM in Syringe IV (12:30)
--- NOTE | 2024-10-13 14:38 | OP.PCM_ITS ---
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 [employer] Dean: stefano Tasks completed by assistant foreman: Retracting Additional web press operator assistant?: No Type of Anesthesia: Block,Regional and General RN Documented Start/Stop Times: Operation Date: 10/13/24 12:30 Case Time Into Pre-Op 10/13/24 10:43 Out of Pre-Op 10/13/24 12:29 Anesthesia Start 10/13/24 12:30 Into Room 10/13/24 12:30 Procedure Start 10/13/24 13:13 Procedure End 10/13/24 14:36 Procedure Start Time: 13:13 Procedure Stop Time: 14:36 Select all DRAINS/GRAFTS/IMPLANTS that apply: Implanted device Implanted device details: synthes multi lock humeral nail, 270 x 8.5 Estimated Blood Loss: 50 Specimen collected: No Description of surgery: Patient brought to the operating room theater. Placed supine on the table. General anesthesia induced. Upper extremity prepped and draped in usual sterile fashion with chlorhexidine-based prep solution allowing over 3 minutes drying time prior to draping. Patient sat up at a 45 degree angle. Arm powell used to the patient's left side all bony prominences padded. SCDs on the legs. Preop erative timeout performed to confirm the site patient the surgery. Bed turned 90 degrees. Took AP lateral radiographs of the humerus confirm the reduction using manual manipulation. Made a small longitudinal 1 inch incision over neviasers portal.. Dissection down through skin and subcutaneous tissue to meticulous hemostasis, split the fascia in line with skin incision dissected down to the superior aspect of the humerus. Passed the guidewire center center on both AP and lateral humeral radiographs. Used the opening reamer. Passed the ball-tipped guidewire down to the center cross the fracture site. I used a sterile Esmarch to hold the fracture in place as well as direct manipulation. I measured for this and measured to 285 so I selected 270 nail 8.5 mm in diameter. I reamed up to 9.5 mm in diameter. I passed the nail down to an appropriate depth. I drilled and then placed the 3 percutaneous proximal screws these were 4.5 millimeter screws. I ensured to keep these just short of the humeral head subchondral bone. I then passed the oblique screw the 4.0 millimeter screw 40 mm length for the calcar screw. I then turned my attention distal. Given appropriate reduction I then used again perfect pitka's point technique and percutaneous stab incisions to pass 2 4.0 mm fully threaded cortical screws 28 mm in length was achieved good reduction and stabilization of the fracture. Final radiographs were taken and saved onto the system made both proximally and distally. Wound thoroughly irrigated drill guide as well as the ball-tipped guidewire was removed prior to drilling. Subcutaneous tissue closed with 2-0 Vicryl suture and skin with 3-0 Monocryl. Skin cleaned with wet dry dressing followed application of Steri-Strips Adaptic 4 x 4 gauze ABD dressing and Amado wrap and cloth tape for the upper extremity with a sling. Patient woken up from the general anesthetic transferred off the operating table taken postanesthetic care unit in stable condition. All sponge needle instrument counts were correct no complications. Plan to the patient discharged home according to day surgery criteria. Follow-up in the office next week. cpt [id number] Surgical Findings: humerus fracture Complications Complications: No Admit VTE Documentation VTE Present on Admission: No VTE Mechan Device Prophylaxis: SCD's VTE Pharm Prophylaxis ordered?: No Reason prophylaxis not ordered: Treatment Not Indicated
--- NOTE | 2024-10-13 14:46 | EX.PCM.DISCH ---
Discharge Instructions Diet Discharge Diet: No restrictions Activity Ice area for (Minutes): 10 Lifting Restrictions: pendulums only 4x/day, sling [employer]. Dressing / Incision Call your doctor if your incision/area has: Continuous Slow Oozing, Sudden Increased Bleeding, Increased Pain/ Swelling, Increased Redness, Foul Smelling Discharge and Swelling at the incision site Call your doctor if you observe: Fever of 101 or Higher, Coldness, Increased Pain and Numbness or Tingling Suture Line Care: Avoid Pulling/Pushing Remove Dressing in: leave in place till F/U Cleanse incision/area with: Do not get Incision Wet Follow Up Care Please Follow Up With: Basilio Daley MD When: next week Test Results: Test results from this visit will be discussed in further detail at your follow-up appointment, if applicable. Discharge Plan Admission Attending Provider: Basilio Daley Primary Care Provider: Parker Cain Instructions Print Language: Malay Discharge Orders/Prescriptions Prescriptions: New oxycodone-acetaminophen [Endocet] 5-325 mg tablet 1 tab PO Q4H MDD 6 PRN (Reason: pain) 5 Days Qty: 20 0RF No Action citalopram 20 mg tablet 20 mg PO QDAY meloxicam 15 mg tablet 15 mg PO DAILY trazodone 100 mg tablet 200 mg PO QHS PRN (Reason: sleep) gabapentin 300 MG capsule 300 mg PO TIDCM PRN (Reason: Pain) aspirin 81 MG tablet,chewable 81 mg PO DAILY@0800 clopidogrel 75 MG tablet 75 mg PO DAILY Patient Comments: TAKE 1 TABLET BY MOUTH EVERY DAY atorvastatin 40 MG tablet 40 mg PO QHS pantoprazole 40 MG tablet 40 mg PO DAILY Rx Instructions: Take 40 mg twice a day for 1 month, then take 40 mg once a day. lisinopril 10 MG tablet 10 mg PO DAILY buspirone 5 mg tablet 5 mg PO TID metoprolol succinate 25 mg tablet extended release 24 hr 25 mg PO QHS Referrals / Follow Up: Parker Cain MD [Primary Care Provider] - Basilio Daley MD [Med Staff - Active Staff] - Disposition Disposition (needs filled in before D/C Order can be placed): Home, Self Care
--- NOTE | 2024-10-13 15:15 | PCM.POST.ANE ---
Anesthesia: Postop Eval I Current Vital Signs Temperature: 98.7 F Pulse Rate: 67 Blood Pressure: 152/89 Respiratory Rate: 16 Pulse Ox: 100 Oxygen Delivery Method: Room Air Assessment Airway patent: Yes Spontaneous unlabored respirations: Yes Mental status: Awake and Calm nausea: No Vomiting: No Anesthesia Complication: No Fluid Hydration Crystalloid volume administer (ml): 1,000 Total IV fluid infused: 1,000 Progress Note Anesthesia document: Postop Eval 1 completed: Yes
--- NOTE | 2024-10-13 17:09 | POSTOPAN2_ITS ---
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.[email or web address] Spontaneous unlabored Yes 10/13/24 15:16 BATHROOM TILING PROFESSIONAL.[email or web address] respirations Mental status Awake,Calm 10/13/24 15:16 BATHROOM TILING PROFESSIONAL.[email or web address] nausea No 10/13/24 15:16 BATHROOM TILING PROFESSIONAL.[email or web address] Vomiting No 10/13/24 15:16 BATHROOM TILING PROFESSIONAL.[email or web address] Anesthesia Postop Eval I: Fluid Summary Crystalloid volume administer 1,000 10/13/24 15:16 BATHROOM TILING PROFESSIONAL.[email or web address] (ml) Colloids volume administered ( ml) Blood Product volume administered (ml) Total IV fluid infused 1,000 10/13/24 15:16 BATHROOM TILING PROFESSIONAL.[email or web address] Anesthesia Postop Eval I: Summary Notes Anesthesia Complication No 10/13/24 15:16 BATHROOM TILING PROFESSIONAL.[email or web address] Anesthesia Complication Comment: Post-operative progress note Anesthesia: Postop Eval II Evaluation Mental status: Awake and Calm Pain Level: 1 nausea: No Vomiting: No Complications Anesthesia Complication: No
--- NOTE | 2024-10-13 17:09 | PCM.POSTANE2 ---
Anesthesia Postop Eval I Sum Postop Eval Completion status Anesthesia document: Postop Eval 1 completed: Yes Anesthesia Postop Eval I Summary Anesthesia Postop Eval I Summary: Anesthesia Postop Eval I: Assessment Summary Airway patent Yes 10/13/24 15:16 MANAGING [email or web address] Spontaneous unlabored Yes 10/13/24 15:16 MANAGING [email or web address].[email or web address] respirations Mental status Awake,Calm 10/13/24 15:16 MANAGING [email or web address].[email or web address] nausea No 10/13/24 15:16 MANAGING [email or web address].[email or web address] Vomiting No 10/13/24 15:16 MANAGING [email or web address].[email or web address] Anesthesia Postop Eval I: Fluid Summary Crystalloid volume administer 1,000 10/13/24 15:16 MANAGING [email or web address].[email or web address] (ml) Colloids volume administered ( ml) Blood Product volume administered (ml) Total IV fluid infused 1,000 10/13/24 15:16 MANAGING [email or web address].[email or web address] Anesthesia Postop Eval I: Summary Notes Anesthesia Complication No 10/13/24 15:16 MANAGING [email or web address].[email or web address] Anesthesia Complication Comment: Post-operative progress note Anesthesia: Postop Eval II Evaluation Mental status: Awake and Calm Pain Level: 1 nausea: No Vomiting: No Complications Anesthesia Complication: No
== END 2024-10-13 16:40 | disposition home or self-care (01) ==
LOC: SDC 10:36 → AC 10:37
PROVIDERS: PCP Family Medicine; Referring Provider Orthopaedic Surgery Sports Medicine; Visit Provider Orthopaedic Surgery Sports Medicine
PROC: (CPT 24515; principal; 2024-10-13 12:10)
DX: S42.302A Unspecified fracture of shaft of humerus, left arm, initial encounter for closed fracture (principal); I11.0 Hypertensive heart disease with heart failure; I50.9 Heart failure, unspecified; J44.9 Chronic obstructive pulmonary disease, unspecified; K21.9 Gastro-esophageal reflux disease without esophagitis; F17.210 Nicotine dependence, cigarettes, uncomplicated; E78.5 Hyperlipidemia, unspecified; I25.10 Atherosclerotic heart disease of native coronary artery without angina pectoris; Z79.82 Long term (current) use of aspirin; Z79.02 Long term (current) use of antithrombotics/antiplatelets; Z79.899 Other long term (current) drug therapy; X58.XXXA Exposure to other specified factors, initial encounter; Z95.5 Presence of coronary angioplasty implant and graft
CPT/HCPCS: 24515; 64450; 01740; 73060; 76000; C1713; A4216; J2405

== ENCOUNTER → 2025-06-09 | Outpatient (CLI) | payer MEDICARE, SELFPAY ==
--- NOTE | 2025-06-09 14:49 | CT_ITS ---
PROCEDURE: CHEST WITH CONTRAST 06/09/2025 REASON FOR EXAM: SOLITARY PULMONARY NODULE TECHNIQUE: Procedure Code: CTCHW Modality: CT Procedure: CHEST WITH CONTRAST Coronal and Sagittal reconstruction series were provided. CONTRAST: Isovue 370 VOLUME: 95 mL One or more dose reduction techniques were used (e.g., Automated exposure control, adjustment of the mA and/or kV according to patient size, use of iterative reconstruction technique). RADIATION DOSE SUMMARY: CTDlvol: 15.34 mGy DLP: 218.42 mGycm COMPARISON: None FINDINGS: PULMONARY NODULES: (Only nodules >3mm are reported) Lower neck:The thyroid gland is normal. There is no supraclavicular lymphadenopathy. Mediastinum:There are few normal size reactive mediastinal lymph nodes. Heart and Vasculature:The heart size is normal. There is no pericardial effusion. There is calcific vascular disease of the thoracic aorta and coronary arteries. 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 Esophagus:Normal. Upper Abdomen:There is significant calcific vascular disease of the visualized abdominal aorta. The origins of both renal arteries are heavily calcified. 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 There is a small cortical cyst on the left kidney. There is a gallstone. Chest wall:The soft tissues of the chest wall appear unremarkable. There are few reactive axillary lymph nodes bilaterally. There is [id number] multilevel degenerative disc disease of the thoracic spine. There is an intrathecal stimulator with the tip at the T7 level. Lungs, airways and pleura: There is severe centrilobular emphysema. There are no pulmonary nodules or masses. There are no pleural effusions. CT/Chest WITH Contrast IMPRESSION: 1. Severe emphysema. 2. There are no pulmonary nodules or masses. 3. Calcific vascular disease. 4. 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 5. Other findings as noted. Recommendation: Follow-up low-dose chest CT in 12 months. Reading [id number]
== END | disposition home or self-care (01) ==
LOC: CT 14:44
PROVIDERS: PCP Family Medicine; Referring Provider Internal Medicine Pulmonary Disease; Visit Provider Internal Medicine Pulmonary Disease
DX: R91.1 Solitary pulmonary nodule (principal)
CPT/HCPCS: 71260; Q9967